=== PATIENT | female | born 1990 | race Caucasian/White ===

== ENCOUNTER → 2019-03-22 | Emergency (ER) | payer OTHER, SELFPAY ==
[~2019-03-22] MED LIST: FAMOTIDINE 20 MG/2 ML VIAL IV ONE; KETOROLAC 30 MG/ML INJ IV ONE; NA CHLORIDE 0.9% 1,000 ML IV ONE
[2019-03-22 08:53] LABS: Basophils % 0.3 % (0-1.3); Hematocrit 37.7 % (36.0-45.0); Lymphocytes % 17.4 % (15.3-44.8); MPV 8.3 fL (7.6-11.3); RBC Red Blood Cell Count 4.15 M/uL (3.86-4.86)
[2019-03-22 09:06] LABS: Albumin 3.2 g/dL (3.4-5.0); Bilirubin Direct 0.2 mg/dL (0-0.2); Bilirubin Total 0.6 mg/dL (0.2-1.0); Potassium 4.1 mmol/L (3.5-5.1); Protein, Total 6.9 g/dL (6.4-8.2)
--- NOTE | 2019-03-22 13:31 | RAD REPORT ---
EXAM DESCRIPTION: US ABDOMEN EXAM LIMITED CLINICAL HISTORY: Right upper quadrant pain. COMPARISON: TECHNIQUE: Gallbladder sonogram. FINDINGS: The gallbladder shows no evidence of stones, wall thickening or pericholecystic fluid. The common bile duct measures 3 mm. The liver shows no evidence of intrahepatic biliary dilatation. IMPRESSION: Negative study.
--- NOTE | 2019-03-22 15:34 | EDPHYS ---
Physician Documentation [facility] Name: Katie Kumar Age: 29 yrs Sex: Female : 1990 Arrival Date: 03/22/2019 Time: 07:59 Bed External Waiting Private MD: ED Physician Estiven Lyons HPI: 03/22 10:16 This 29 yrs old Female presents to ER via Ambulatory with complaints of Abdominal Pain. kb 10:16 The patient presents with abdominal pain in the epigastric area. Onset: The kb symptoms/episode began/occurred last night. The symptoms do not radiate. Associated signs and symptoms: Pertinent positives: nausea. The symptoms are described as crampy, intermittent. Modifying factors: The symptoms are alleviated by nothing, the symptoms are aggravated by nothing. Severity of pain: At its worst the pain was mild in the emergency department the pain is unchanged. The patient has experienced a previous episode. The patient has not recently seen a physician. Pt reports intermittent upper abd cramps that started yesterday. Has had similar complaints and it was due to indigestion. - Immunization history:: Adult Immunizations up to date. - Social history:: Smoking status: . - Ebola Screening: : Patient negative for fever greater than or equal to 101.5 degrees Fahrenheit, and additional compatible Ebola Virus Disease symptoms Patient denies exposure to infectious person Patient denies travel to an Ebola-affected area in the 21 days before illness onset No symptoms or risks identified at this time. ROS: 10:16 Constitutional: Negative for fever, chills, and weight loss, ENT: Negative for injury, kb pain, and discharge, Neck: Negative for injury, pain, and swelling, Cardiovascular: Negative for chest pain, palpitations, and edema, Respiratory: Negative for shortness of breath, cough, wheezing, and pleuritic chest pain, Back: Negative for injury and pain, : Negative for injury, bleeding, discharge, and swelling, MS/Extremity: Negative for injury and deformity, Skin: Negative for injury, rash, and discoloration, Neuro: Negative for headache, weakness, numbness, tingling, and seizure. 10:16 Abdomen/GI: Positive for abdominal pain, nausea. Exam: 10:15 Constitutional: This is a well developed, well nourished patient who is awake, alert, kb and in no acute distress. Head/Face: Normocephalic, atraumatic. ENT: Nares patent. No nasal discharge, no septal abnormalities noted. Tympanic membranes are normal and external auditory canals are clear. Oropharynx with no redness, swelling, or masses, exudates, or evidence of obstruction, uvula midline. Mucous membranes moist. Neck: Trachea midline, no thyromegaly or masses palpated, and no cervical lymphadenopathy. Supple, full range of motion without nuchal rigidity, or vertebral point tenderness. No Meningismus. Chest/axilla: Normal chest wall appearance and motion. Nontender with no deformity. No lesions are appreciated. Cardiovascular: Regular rate and rhythm with a normal S1 and S2. No gallops, murmurs, or rubs. Normal PMI, no JVD. No pulse deficits. Respiratory: Lungs have equal breath sounds bilaterally, clear to auscultation and percussion. No rales, rhonchi or wheezes noted. No increased work of breathing, no retractions or nasal flaring. Abdomen/GI: Soft, non-tender, with normal bowel sounds. No distension or tympany. No guarding or rebound. No evidence of tenderness throughout. Back: No spinal tenderness. No costovertebral tenderness. Full range of motion. Skin: Warm, dry with normal turgor. Normal color with no rashes, no lesions, and no evidence of cellulitis. MS/ Extremity: Pulses equal, no cyanosis. Neurovascular intact. Full, normal range of motion. Neuro: Awake and alert, GCS 15, oriented to person, place, time, and situation. Cranial nerves II-XII grossly intact. Motor strength 5/5 in all extremities. Sensory grossly intact. Cerebellar exam normal. Normal gait. Vital Signs: 08:29 BP 154 / 93; Pulse 76; Resp 16; Temp 98.6; Pulse Ox 98% on R/A; Pain 8/10; la1 10:30 BP 136 / 88; Pulse 77; Resp 16; Pulse Ox 98% on R/A; Pain 3/10; sg MDM: 08:17 Patient medically screened. kb 10:15 Data reviewed: vital signs, nurses notes. Data interpreted: Pulse oximetry: on room air kb is 98 %. Interpretation: normal. Counseling: I had a detailed discussion with the patient and/or guardian regarding: the historical points, exam findings, and any diagnostic results supporting the discharge/admit diagnosis, lab results, radiology results, the need for outpatient follow up, a family practitioner, to return to the emergency department if symptoms worsen or persist or if there are any questions or concerns that arise at home. 03/22 15:33 Order name: Basic Metabolic Panel EDOR 03/22 15:33 Order name: CBC with Automated Diff EDOR 03/22 15:33 Order name: Lipase EDOR 03/22 15:33 Order name: Liver (Hepatic) Function EDOR 03/22 15:33 Order name: US EDMS Administered Medications: No medications were administered Disposition: 13:42 Co-signature as Attending Physician, Estiven Lyons MD. rn Disposition: 03/22/19 10:21 Discharged to Home. Impression: Upper abdominal pain, unspecified. - Condition is Stable. - Discharge Instructions: Gastroesophageal Reflux Disease, Adult, Abdominal Pain, Adult, [id number]. - Prescriptions for Bentyl 20 mg Oral Tablet - take 1 tablet by ORAL route every 6 hours As needed; 20 tablet. Zofran 4 mg Oral Tablet - take 1 tablet by ORAL route every 12 hours As needed; 20 tablet. - Medication Reconciliation Form, Thank You Letter, Antibiotic Education, Prescription Opioid Use form. - Follow up: Emergency Department; When: As needed; Reason: Worsening of condition. Follow up: Private Physician; When: 2 - 3 days; Reason: Recheck today's complaints, Continuance of care, Re-evaluation by your physician. Signatures: Bonnie Osman, GARDENING INSTRUCTOR-C GARDENING INSTRUCTOR-Ckb Richy Layton RN RN sg Stephanie Diana RN RN iw Nieto, Roman, MD MD rn field case manager: (The following items were deleted from the chart) 15:33 10:21 03/22/2019 10:21 Discharged to Home. Impression: Upper abdominal pain, iw unspecified. Condition is Stable. Forms are Medication Reconciliation Form, Thank You Letter, Antibiotic Education, Prescription Opioid Use. Follow up: Emergency Department; When: As needed; Reason: Worsening of condition. Follow up: Private Physician; When: 2 - 3 days; Reason: Recheck today's complaints, Continuance of care, Re-evaluation by your physician. kb
--- NOTE | 2019-03-22 15:34 | ER ---
Nurse's Notes [facility] Name: Katie Kumar Age: 29 yrs Sex: Female : 1990 Arrival Date: 03/22/2019 Time: 07:59 Bed External Waiting Private MD: Diagnosis: Upper abdominal pain, unspecified Presentation: 03/22 08:21 Presenting complaint: Patient states: upper abd pain since last night, intermittent iw cramping, +nausea, no vomiting. Transition of care: patient was not received from another setting of care. Onset of symptoms was March 21, 2019. Risk Assessment: Do you want to hurt yourself or someone else? Patient reports no desire to harm self or others. Initial Sepsis Screen: Does the patient meet any 2 criteria? No. Patient's initial sepsis screen is negative. Does the patient have a suspected source of infection? No. Patient's initial sepsis screen is negative. Care prior to arrival: None. 08:21 Method Of Arrival: Ambulatory iw 08:21 Acuity: FREEMAN 3 iw - Immunization history:: Adult Immunizations up to date. - Social history:: Smoking status: . - Ebola Screening: : Patient negative for fever greater than or equal to 101.5 degrees Fahrenheit, and additional compatible Ebola Virus Disease symptoms Patient denies exposure to infectious person Patient denies travel to an Ebola-affected area in the 21 days before illness onset No symptoms or risks identified at this time. Screenin:35 Abuse screen: Denies threats or abuse. Denies injuries from another. Nutritional iw screening: No deficits noted. Tuberculosis screening: No symptoms or risk factors identified. Fall Risk IV access (20 points). Assessment: 08:35 General: Appears in no apparent distress. Behavior is calm, cooperative. Pain: iw Complains of pain in epigastric area, right upper quadrant and left upper quadrant Pain currently is 8 out of 10 on a pain scale. Quality of pain is described as crampy, Pain began 1 day ago. Is intermittent. Neuro: Level of Consciousness is awake, alert, obeys commands, Oriented to person, place, time, situation, Moves all extremities. Cardiovascular: Patient's skin is warm and dry. Respiratory: Respiratory effort is even, unlabored, Respiratory pattern is regular. GI: Bowel sounds present X 4 quads. Abd is soft X 4 quads. GI: Reports nausea. Derm: Skin is intact, is healthy with good turgor. Musculoskeletal: Range of motion: intact in all extremities. 10:17 Reassessment: Patient appears in no apparent distress at this time. Patient and/or sg family updated on plan of care and expected duration. Pain level reassessed. Patient is alert, oriented x 3, equal unlabored respirations, skin warm/dry/pink. 10:17 Reassessment: pt administered 20 mg IV pepcid at this time. sg Vital Signs: 08:29 BP 154 / 93; Pulse 76; Resp 16; Temp 98.6; Pulse Ox 98% on R/A; Pain 8/10; la1 10:30 BP 136 / 88; Pulse 77; Resp 16; Pulse Ox 98% on R/A; Pain 3/10; sg ED Course: 07:59 Patient arrived in ED. as 08:02 Bon[facility]C [facility] kb 08:02 Estiven Lyons MD is Attending Physician. kb 08:22 Triage completed. iw 08:29 Arm band placed on. la1 08:35 Patient has correct armband on for positive identification. iw 08:36 Initial lab(s) drawn, by me, sent to lab. Inserted saline lock: 22 gauge in right dh3 antecubital area, using aseptic technique. Blood collected. 09:20 Richy Layton, RN is Primary Nurse. sg 10:50 No provider procedures requiring assistance completed. IV discontinued, intact, sg bleeding controlled, No redness/swelling at site. Pressure dressing applied. Administered Medications: No medications were administered Outcome: 10:21 Discharge ordered by . kb 10:50 Discharged to home ambulatory. sg 10:50 Condition: good 10:50 Discharge instructions given to patient, Instructed on discharge instructions, follow up and referral plans. medication usage, safety practices, Demonstrated understanding of instructions, follow-up care, medications, Prescriptions given X 2. 15:33 Patient left the ED. iw Signatures: Bonnie Osman FNP-C FNP-Richy Fiore, RN KINJAL sg Elaina Bermudez Irene, RN RN Mauro Deleon RN RN [facility] Yancy Dior [facility]
== END ==
LOC: ER 07:49
DX: R10.10 Upper abdominal pain, unspecified (principal)
CPT/HCPCS: 36415; 76705; 80048; 80076; 83690; 85025; 99283; J7030

== ENCOUNTER 2020-08-24 08:28 | Emergency (ER) | payer BC, SELFPAY ==
--- NOTE | 2020-08-24 09:41 | RAD REPORT ---
EXAM DESCRIPTION: RAD - Chest Single View - 08/24/2020 9:19 am CLINICAL HISTORY: Cough;Congestion COMPARISON: None TECHNIQUE: AP portable chest image was obtained 08/24/2020 9:19 am . FINDINGS: Lungs are clear. Breast tissue and implants increased overall density to the lower lung fi elds. Heart and vasculature are normal. No measurable pleural effusion and no pneumothorax. No acute bony abnormality seen. No acute aortic findings suspected. IMPRESSION: No acute cardiopulmonary process.
[2020-08-24 10:55] LABS: Urine Blood NEGATIVE (NEG); Urine Glucose NEGATIVE (NEG); Urine Protein NEGATIVE (NEG); Urine pH 5.5 (5.0-7.0)
[2020-08-24 11:01] LABS: SARS-COV-2 RT PCR POSITIVE (NEGATIVE)
--- NOTE | 2020-08-24 11:13 | EDPHYS ---
Physician Documentation [facility] Name: Katie Kumar Age: 30 yrs Sex: Female : 1990 Arrival Date: 08/24/2020 Time: 08:30 Bed 19 Private MD: ED Physician Isai Vo HPI: 08/24 09:06 This 30 yrs old Female presents to ER via Unassigned with complaints of kdr Fever, Flank Pain, Chest Congestion. 09:06 The patient reports fever, that was measured at 102 degrees Fahrenheit, The patient kdr went to urgent care yesterday for cough and congestion. Rapid COVID test was neg, PCR test is pending for tomorrow. She continued to have fever and generalized malaise last night. She denies any other s/s. Onset: The symptoms/episode began/occurred 2 day(s) ago. Modifying factors: Recent medications: acetaminophen. Associated signs and symptoms: Pertinent positives: cough, Thick sputum. sore throat. Severity of symptoms: At their worst the symptoms were mild in the emergency department the symptoms are unchanged. The patient has not experienced similar symptoms in the past. The patient has been recently seen at an urgent care, yesterday. Historical: - Allergies: 08:31 No Known Allergies; dm5 - PMHx: 08:31 cystic fibrosis; dm5 - Immunization history:: Adult Immunizations up to date. - Social history:: Smoking status: Patient denies any tobacco usage or history of. ROS: 09:06 Constitutional: Negative for fever, chills, and weight loss, Eyes: Negative for injury, kdr pain, redness, and discharge, Neck: Negative for injury, pain, and swelling, Cardiovascular: Negative for chest pain, palpitations, and edema, Respiratory: Negative for shortness of breath, cough, wheezing, and pleuritic chest pain, Abdomen/GI: Negative for abdominal pain, nausea, vomiting, diarrhea, and constipation, Back: Negative for injury and pain, : Negative for injury, bleeding, discharge, and swelling, MS/Extremity: Negative for injury and deformity, Skin: Negative for injury, rash, and discoloration, Neuro: Negative for headache, weakness, numbness, tingling, and seizure activity. Psych: Negative for depression, anxiety, suicide ideation, homicidal ideation, and hallucinations, Allergy/Immunology: Negative for hives, rash, and allergies, Endocrine: Negative for neck swelling, polydipsia, polyuria, polyphagia, and marked weight changes, Hematologic/Lymphatic: Negative for swollen nodes, abnormal bleeding, and unusual bruising. 09:06 ENT: Positive for sore throat, Negative for drainage from ear(s), ear pain, hearing loss, pulling at ears, Teeth pain tinnitus, difficulty handling secretions. : Respiratory: Positive for cough, thick sputum. kdr Exam: : Constitutional: This is a well developed, well nourished patient who is awake, alert, kdr and in no acute distress. Head/Face: Normocephalic, atraumatic. Eyes: Pupils equal round and reactive to light, extra-ocular motions intact. Lids and lashes normal. Conjunctiva and sclera are non-icteric and not injected. Cornea within normal limits. Periorbital areas with no swelling, redness, or edema. Neck: Trachea midline, no thyromegaly or masses palpated, and no cervical lymphadenopathy. Supple, full range of motion without nuchal rigidity, or vertebral point tenderness. No Meningismus. Chest/axilla: Normal chest wall appearance and motion. Nontender with no deformity. No lesions are appreciated. Cardiovascular: Regular rate and rhythm with a normal S1 and S2. No gallops, murmurs, or rubs. Normal PMI, no JVD. No pulse deficits. Respiratory: Lungs have equal breath sounds bilaterally, clear to auscultation and percussion. No rales, rhonchi or wheezes noted. No increased work of breathing, no retractions or nasal flaring. Abdomen/GI: Soft, non-tender, with normal bowel sounds. No distension or tympany. No guarding or rebound. No evidence of tenderness throughout. Back: No spinal tenderness. No costovertebral tenderness. Full range of motion. Skin: Warm, dry with normal turgor. Normal color with no rashes, no lesions, and no evidence of cellulitis. MS/ Extremity: Pulses equal, no cyanosis. Neurovascular intact. Full, normal range of motion. Neuro: Awake and alert, GCS 15, oriented to person, place, time, and situation. Cranial nerves II-XII grossly intact. Motor strength 5/5 in all extremities. Sensory grossly intact. Cerebellar exam normal. Normal gait. Psych: Awake, alert, with orientation to person, place and time. Behavior, mood, and affect are within normal limits. 09:06 ENT: Posterior pharynx: Airway: normal, Tonsils: bilaterally enlarged, with erythema, no exudate, no ulcerations. Vital Signs: 08:33 BP 132 / 97; Pulse 89; Resp 18; Temp 98.3(O); Pulse Ox 100% ; Weight 46.72 kg; Pain dm5 0/10; 09:00 BP 140 / 91; Pulse 88; Resp 18; Pulse Ox 99% ; dm14 09:30 BP 128 / 77; Pulse 75; Resp 18; Pulse Ox 97% ; dm14 10:00 BP 109 / 79; Pulse 76; Resp 18; Pulse Ox 98% ; dm14 10:30 BP 98 / 66; Pulse 71; Resp 18; Pulse Ox 98% ; dm14 11:00 BP 110 / 61; Pulse 73; Resp 18; Pulse Ox 96% ; dm14 MDM: 11:12 Patient medically screened. kdr 18:32 Data reviewed: vital signs, nurses notes, lab test result(s), radiologic studies. kdr Counseling: I had a detailed discussion with the patient and/or guardian regarding: the historical points, exam findings, and any diagnostic results supporting the discharge/admit diagnosis, lab results, radiology results, the need for outpatient follow up. 08/24 08:57 Order name: Flu [facility] 08/24 08:57 Order name: Strep [facility] 08/24 08:57 Order name: Group A Streptococcus Rapid Sc; Complete Time: 11:01 [facility] 08/24 09:16 Order name: CORONAVIRUS (COVID-19) : Document "Date of Symptom Onset" if Symptomatic. em1 08/24 08:57 Order name: CXR XRAY; Complete Time: 09:42 [facility] 08/24 08:57 Order name: Urine Dipstick-Ancillary (obtain specimen); Complete Time: 10:21 kdr 08/24 08:57 Order name: Urine Test (obtain specimen); Complete Time: 10:20 [facility] 08/24 09:56 Order name: Throat Culture [facility] 08/24 10:22 Order name: Urine Dipstick--Ancillary (enter results); Complete Time: 11:01 [facility] 08/24 10:22 Order name: Urine --Ancillary (enter results); Complete Time: 11:01 em1 08/24 11:01 Order name: COVID-19/FLU A+B; Complete Time: 11:04 EDMS Administered Medications: No medications were administered Disposition: 08/24/20 11:12 Discharged to Home. Impression: Acute upper respiratory infection, unspecified - COVID, SARS-associated coronavirus as the cause of diseases classified elsewhere. - Condition is Stable. - Discharge Instructions: Upper Respiratory Infection, Adult, Viral Respiratory Infection, [id number], COVID-19. - Medication Reconciliation Form, Thank You Letter form. - Follow up: Private Physician; When: 2 - 3 days; Reason: If symptoms return, Further diagnostic work-up, Recheck today's complaints, Continuance of care, Re-evaluation by your physician. - Problem is new. - Symptoms have improved. Signatures: Dispatcher [employer] [facility] Carole Olivera RN RN dm5 Isai Vo MD MD [facility] Tahira Guo RN RN dm14 Corrections: (The following items were deleted from the chart) 09:48 08:57 Influenza Screen (A ordered. [facility] EDMS 09:48 09:17 CORONAVIRUS ordered. [facility] 11:33 11:12 08/24/2020 11:12 Discharged to Home. Impression: Acute upper respiratory dm14 infection, unspecified - COVID; SARS-associated coronavirus as the cause of diseases classified elsewhere. Condition is Stable. Forms are Medication Reconciliation Form, Thank You Letter, Antibiotic Education, Prescription Opioid Use. Follow up: Private Physician; When: 2 - 3 days; Reason: If symptoms return, Further diagnostic work-up, Recheck today's complaints, Continuance of care, Re-evaluation by your physician. Problem is new. Symptoms have improved. kdr
--- NOTE | 2020-08-24 11:13 | ER ---
Nurse's Notes [facility] Name: Katie Kumar Age: 30 yrs Sex: Female : 1990 Arrival Date: 08/24/2020 Time: 08:30 Bed 19 Private MD: Diagnosis: Acute upper respiratory infection, unspecified-COVID;SARS-associated coronavirus as the cause of diseases classified elsewhere Presentation: 08/24 08:30 Acuity: FREEMAN 3 dm5 Historical: - Allergies: 08:31 No Known Allergies; dm5 - PMHx: 08:31 cystic fibrosis; dm5 - Immunization history:: Adult Immunizations up to date. - Social history:: Smoking status: Patient denies any tobacco usage or history of. Screenin:43 Abuse screen: Denies threats or abuse. Denies injuries from another. Nutritional dm5 screening: No deficits noted. Tuberculosis screening: No symptoms or risk factors identified. Fall Risk None identified. Assessment: 08:43 General: Appears in no apparent distress. comfortable, well groomed, Behavior is calm, dm5 cooperative, appropriate for age. Pain: Denies pain. 09:20 Reassessment: Unable to void at this time. Glass of water given. No change in condition.dm14 09:56 Reassessment: Up to BR to void. Specimen obtained. dm14 11:00 Reassessment: No changes from previously documented assessment. dm14 Vital Signs: 08:33 BP 132 / 97; Pulse 89; Resp 18; Temp 98.3(O); Pulse Ox 100% ; Weight 46.72 kg; Pain dm5 0/10; 09:00 BP 140 / 91; Pulse 88; Resp 18; Pulse Ox 99% ; dm14 09:30 BP 128 / 77; Pulse 75; Resp 18; Pulse Ox 97% ; dm14 10:00 BP 109 / 79; Pulse 76; Resp 18; Pulse Ox 98% ; dm14 10:30 BP 98 / 66; Pulse 71; Resp 18; Pulse Ox 98% ; dm14 11:00 BP 110 / 61; Pulse 73; Resp 18; Pulse Ox 96% ; dm14 ED Course: 08:30 Patient arrived in ED. dm5 08:30 Triage completed. dm5 08:33 Arm band placed on right wrist. dm5 08:36 Isai Vo MD is Attending Physician. kdr 08:42 Carole Olivera, RN is Primary Nurse. dm5 08:43 Patient has correct armband on for positive identification. Bed in low position. Call dm5 light in reach. 09:08 Strep Sent. dm14 09:08 Flu Sent. dm14 09:19 CXR XRAY In Process Unspecified. EDMS 10:23 CORONAVIRUS (COVID-19) : Document "Date of Symptom Onset" if Symptomatic. Sent. dm14 10:45 Primary Nurse role handed off by Carole Olivera, RN dm14 10:45 Tahira Guo, KINJAL is Primary Nurse. dm14 11:00 No provider procedures requiring assistance completed. Patient did not have IV access dm14 during this emergency room visit. Administered Medications: No medications were administered Outcome: 11:00 Discharged to home ambulatory. dm14 11:00 Condition: stable 11:00 Discharge instructions given to patient, Instructed on discharge instructions, follow up and referral plans. Demonstrated understanding of instructions, follow-up care. 11:12 Discharge ordered by . kdr 11:33 Patient left the ED. dm14 Signatures: Dispatcher [employer] [facility] Carole Olivera, RN RN dm5 Isai Vo MD MD [facility] Tahira Guo RN RN dm14
[2020-08-24 11:37] VITALS: TEMP 98.3
[2020-08-24 11:43] VITALS: BP 110/61; O2SAT 96
== END 2020-08-24 11:33 | disposition home or self-care (01) ==
LOC: ER 08:28
DX: U07.1 COVID-19 (principal); J06.9 Acute upper respiratory infection, unspecified; E84.9 Cystic fibrosis, unspecified
CPT/HCPCS: 87070; 81025; 87081; 81003; 0240U; 71045; 99283